=== PATIENT | male | born 1995 | race Caucasian/White ===

== ENCOUNTER 2017-10-18 18:15 | Emergency (ER) | payer OTHER ==
[2017-10-18] MEDS ORDERED: NS 0.9% 1000 ML* 1,000 ML IV ONE (18:26)
[2017-10-18 18:50] LABS: Hematocrit 43 % (42-52); Hemoglobin 14.7 g/dl (14.0-18.0); Mean Corpuscular HGB Conc 34 g/dl (31-36); Mean Corpuscular Hemoglobin 31 pg (27-31); Mean Corpuscular Volume 91 fL (80-94); Mean Platelet Volume 8 um3 (7.4-10.4); Red Blood Count 4.68 10^6/ul (4.0-5.4); Red Cell Distribution Width 13 % (10.5-15); White Blood Count 7.4 10^3/ul (3.5-10.8)
[2017-10-18] MEDS ORDERED: Ketorolac INJ* 30 MG/ML 1 ML VIAL IV PUSH ONE (19:01)
[2017-10-18 19:06] LABS: Urine Bilirubin Negative (Negative); Urine Glucose Negative (Negative); Urine Nitrite Negative (Negative)
[2017-10-18 19:15] LABS: ALT 15 U/L (7-52); AST 21 U/L (13-39); Albumin 4.9 g/dL (3.2-5.2); Alkaline Phosphatase 44 U/L (34-104); Anion Gap 8 mmol/L (2-11); BUN/Creatinine Ratio 24.7 (8-20); Blood Urea Nitrogen 19 mg/dL (6-24); CO2 Carbon Dioxide 27 mmol/L (22-32); Calcium 9.3 mg/dL (8.6-10.3); Chloride 102 mmol/L (101-111); EGFR Non-African American 127.5 (>60); Globulin 2.9 g/dL (2-4); Glucose 87 mg/dL (70-100); Lipase 19 U/L (11.0-82.0); Potassium 3.6 mmol/L (3.5-5.0); Sodium 137 mmol/L (133-145); Total Protein 7.8 g/dL (6.4-8.9)
--- NOTE | 2017-10-18 19:41 | ED ---
GI/ HPI - HPI Summary HPI Summary: 22M presents with diffuse abdominal pain today. He states it started after he ate a burger. He admits to nausea and diarrhea. nothing made it better. He is no longer nauseous as was seen at [facility] and given zofran. He states feels similar to abdominal cramping has had in past but more diffuse and intense. He denies any heart burn or acid reflux. He denies any fever. no flank pain, urgency, frequency, dysuria, hematuria. He states his symptoms started after eating a burrito. No one else is sick. He has not had any previous abdominal surgeries. - History of Current Complaint Chief Complaint: EDAbdPain Time Seen by Provider: 10/18/17 18:26 Stated Complaint: ABD PAIN Pain Intensity: 5 - Additional Pertinent History Primary Care Physician: ESTIVEN - Allergy/Home Medications Allergies/Adverse Reactions: Allergies Allergy/AdvReac Type Severity Reaction Status Date / Time Soy Allergy Allergy Unknown Verified 10/18/17 18:20 Reaction Details Home Medications: Home Medications Calcium Carbonate [Calcium] 500 mg PO DAILY 10/18/17 [History Confirmed 10/18/17 ] Multiple Vitamin [Multi Vitamin] 1 tab PO DAILY 10/18/17 [History Confirmed 03/30] Sertraline* [Zoloft*] 25 mg PO DAILY 10/18/17 [History Confirmed 10/18/17] PMH/Surg Hx/FS Hx/Imm Hx Endocrine/Hematology History: Denies: Hx Anticoagulant Therapy Cardiovascular History: Reports: Hx Atrial Fibrillation - paroxysmal, first episode 2012, 2nd episode Jul 2015 Musculoskeletal History: Reports: Hx Orthopedic Injury - old fractures in R fingers, L toes, L radius and ulna. No metal Sensory History: Reports: Hx Contacts or Glasses Opthamlomology History: Reports: Hx Contacts or Glasses Infectious Disease History: No Infectious Disease History: Denies: Traveled Outside the [place] in Last 30 Days - Family History Known Family History: Negative: Renal Disease - Social History Alcohol Use: Occasionally Alcohol Amount: Weekends Hx Substance Use: No Substance Use Type: Reports: None Hx Tobacco Use: No Smoking Status (MU): Never Smoked Tobacco Review of Systems Negative: Fever Negative: Chest Pain Negative: Shortness Of Breath Positive: Abdominal Pain, Diarrhea, Nausea. Negative: Vomiting All Other Systems Reviewed And Are Negative: Yes Physical Exam Triage Information Reviewed: Yes Vital Signs On Initial Exam: Initial Vitals Temp Pulse Resp BP Pulse Ox 97.4 F 79 16 132/82 99 10/18/17 18:17 10/18/17 18:17 10/18/17 18:17 10/18/17 18:17 10/18/17 18:17 Vital Signs Reviewed: Yes Appearance: Positive: Well-Appearing Skin: Positive: Warm, Dry Head/Face: Positive: Normal Head/Face Inspection Eyes: Positive: Normal, EOMI, RENUKA, Conjunctiva Clear ENT: Positive: Normal ENT inspection, Pharynx normal, TMs normal Respiratory/Lung Sounds: Positive: Clear to Auscultation, Breath Sounds Present Cardiovascular: Positive: Normal, RRR Abdomen Description: Positive: Soft, Other: - mild tenderness LUQ Bowel Sounds: Positive: Present Musculoskeletal: Positive: Normal Neurological: Positive: Normal Psychiatric: Positive: Normal - [place] Coma Scale Coma Scale Total: 15 Diagnostics - Vital Signs Vital Signs Temp Pulse Resp BP Pulse Ox 10/18/17 19:20 54 18 132/57 100 10/18/17 18:17 97.4 F 79 16 132/82 99 - Laboratory Lab Results: Lab Results 10/18/17 10/18/17 10/18/17 Range/Units 18:35 18:40 18:40 WBC 7.4 (3.5-10.8) 10^3/ul RBC 4.68 (4.0-5.4) 10^6/ul Hgb 14.7 (14.0-18.0) g/dl Hct 43 (42-52) % MCV 91 (80-94) fL MCH 31 (27-31) pg MCHC 34 (31-36) g/dl RDW 13 (10.5-15) % Plt Count 213 (150-450) 10^3/ul MPV 8 (7.4-10.4) um3 Neut % (Auto) 69.6 (38-83) % Lymph % (Auto) 21.3 L (25-47) % Fleming % (Auto) 6.3 (1-9) % Eos % (Auto) 1.7 (0-6) % Baso % (Auto) 1.1 (0-2) % Absolute Neuts (auto) 5.1 (1.5-7.7) 10^3/ul Absolute Lymphs (auto) 1.6 (1.0-4.8) 10^3/ul Absolute Monos (auto) 0.5 (0-0.8) 10^3/ul Absolute Eos (auto) 0.1 (0-0.6) 10^3/ul Absolute Basos (auto) 0.1 (0-0.2) 10^3/ul Absolute Nucleated RBC 0 10^3/ul Nucleated RBC % 0 Sodium 137 (133-145) mmol/L Potassium 3.6 (3.5-5.0) mmol/L Chloride 102 (101-111) mmol/L Carbon Dioxide 27 (22-32) mmol/L Anion Gap 8 (2-11) mmol/L BUN 19 (6-24) mg/dL Creatinine 0.77 (0.67-1.17) mg/dL Est GFR ( Amer) 164.0 (>60) Est GFR (Non-Af Amer) 127.5 (>60) BUN/Creatinine Ratio 24.7 H (8-20) Glucose 87 (70-100) mg/dL Calcium 9.3 (8.6-10.3) mg/dL Total Bilirubin 1.50 H (0.2-1.0) mg/dL AST 21 (13-39) U/L ALT 15 (7-52) U/L Alkaline Phosphatase 44 (34-104) U/L C-React Prot High Sens < 0.20 mg/L Total Protein 7.8 (6.4-8.9) g/dL Albumin 4.9 (3.2-5.2) g/dL Globulin 2.9 (2-4) g/dL Albumin/Globulin Ratio 1.7 (1-3) Lipase 19 (11.0-82.0) U/L Urine Color Straw Urine Appearance Clear Urine pH 7.0 (5-9) Ur Specific [place] 1.008 L (1.010-1.030) Urine Protein Negative (Negative) Urine Ketones Negative (Negative) Urine Blood Negative (Negative) Urine Nitrate Negative (Negative) Urine Bilirubin Negative (Negative) Urine Urobilinogen Negative (Negative) Ur Leukocyte Esterase Negative (Negative) Urine Glucose Negative (Negative) Result Diagrams: 10/18/17 18:40 10/18/17 18:40 Lab Statement: Any lab studies that have been ordered have been reviewed, and results considered in the medical decision making process. GIGU Course/Dx - Course Course Of Treatment: 22M presents with diffuse abdominal pain today. He states it started after he ate a burger. He admits to nausea and diarrhea. nothing made it better. He is no longer nauseous as was seen at [facility] and given zofran. He states feels similar to abdominal cramping has had in past but more diffuse and intense. He denies any heart burn or acid reflux. He denies any fever. no flank pain, urgency, frequency, dysuria, hematuria. He states his symptoms started after eating a burrito. No one else is sick. He has not had any previous abdominal surgeries. on exam tender in LUQ. labs normal wbc and crp. will get u/s. u.s normal. patient feeling better after fluids. patient has zofran from [facility]. patient understand and agrees with plan. - Diagnoses Differential Diagnoses - Male: Gall Bladder Disease, Gastroenteritis (Bacterial) , Gastroenteritis (Viral) Provider Diagnoses: Abdominal pain, Diarrhea Discharge - Discharge Plan Condition: Good Disposition: HOME Patient Education Materials: Acute Diarrhea (ED) Referrals: [facility] - Guillermo ADAMSON [Primary Care Provider] - Additional Instructions: Can take Zofran every 6 hours as needed for nausea Drink small amounts of fluid as tolerated When able to eat follow BRAT diet: Bananas, rice, applesauce, toast Take ibuprofen or Tylenol for pain as needed every 6 hours Follow up with primary within 5 days Return to ED if develop fever that does not respond to Tylenol or ibuprofen, severe abdominal pain, or any new or worsening symptoms
--- NOTE | 2017-10-18 20:06 | RAD ---
Indication: Epigastric pain. Real-time sonography of the right upper quadrant was performed. Liver is at the upper limits of normal in size measuring 18 cm in length. The gallbladder demonstrates no gallstones, pericholecystic fluid or wall thickening. The common duct measures 1.2 mm. Right kidney measures 9.9 x 4.6 x 6.0 cm. No hydronephrosis is noted. The pancreas head, neck and proximal body demonstrates no mass or pancreatic duct dilatation. Aorta and inferior vena cava are unremarkable. IMPRESSION: No evidence of cholelithiasis or biliary ductal dilatation is noted.
[2017-10-18 20:29] VITALS: BP 149/72
== END 2017-10-18 20:28 | disposition home or self-care (01) ==
LOC: ED 18:15
DX: R10.12 Left upper quadrant pain (principal); R10.13 Epigastric pain; R19.7 Diarrhea, unspecified; I48.91 Unspecified atrial fibrillation
CPT/HCPCS: 36415; 76705; 80053; 81003; 83690; 85025; 86141; 86703; 96360; 96374; 99282; J1885